=== PATIENT | male | born 1990 | race African-American/Black ===

== ENCOUNTER 2018-01-31 14:18 | Emergency (ER) | payer OTHER ==
[2018-01-31 15:06] LABS: BASOPHILS % (AUTO) 0.4 %; EOSINOPHILS # (AUTO) 0.3 10^3/uL (0.0-0.7); EOSINOPHILS % (AUTO) 2.5 %; HGB - HEMOGLOBIN 14.9 g/dL (14.0-18.0); LYMPHOCYTES # (AUTO) 0.9 10^3/uL (1.5-3.5); LYMPHOCYTES % (AUTO) 8.6 %; MEAN CORPUSCULAR HEMOGLOBIN 28.2 pg (27.0-31.0); MEAN CORPUSCULAR VOLUME 85.2 fL (80.0-94.0); MEAN PLATELET VOLUME 8.5 fL (7.4-11.4); MONOCYTES % (AUTO) 9.8 %; NEUTROPHILS # (AUTO) 7.9 10^3/uL (1.5-6.6); NEUTROPHILS % (AUTO) 78.7 %; PLT - PLATELET COUNT 224 10^3/uL (130-450); RED BLOOD COUNT 5.31 10^6/uL (4.70-6.10); RED CELL DISTRIBUTION WIDTH 13.1 % (12.0-15.0); WHITE BLOOD COUNT 10.1 x10^3/uL (4.8-10.8)
[2018-01-31 15:19] LABS: ALBUMIN/GLOBULIN RATIO 1.4 (1.0-2.2); BILIRUBIN,TOTAL 1.4 mg/dL (0.2-1.0); CALCIUM 9.9 mg/dL (8.5-10.3); CREATININE 1.3 mg/dL (0.6-1.2); TOTAL PROTEIN 8.7 g/dL (6.7-8.2)
[2018-01-31] MEDS ORDERED: SODIUM CHLORIDE 0.9% 1,000 ML IV ONE (15:22)
--- NOTE | 2018-01-31 15:22 | ED Physician Documentation ---
PD HPI ABD PAIN - Stated complaint Stated Complaint: ABD PX - Chief complaint Chief Complaint: Abd Pain - History obtained from History obtained from: Patient - History of Present Illness Timing - onset: Yesterday Timing - duration: Days (1) Timing - details: Abrupt onset, Still present Quality: Sharp, Pain Location: RLQ Improved by: Other (nothing) Worsened by: Other (urination) Associated symptoms: No: Fever, Nausea, Vomiting, Hematemesis, Diarrhea, Constipation Similar symptoms before: Has not had sx before Recently seen: Not recently seen - Additional information Additional information: Previously well 28-year-old male has developed some pain in his right lower abdomen. The pain is severe and not modifiable. He has been able to eat and he denies any fever. The pain started yesterday and has persisted. He does have some sensation of some increase in the pain when he tries to urinate. Review of Systems Constitutional: reports: Fatigue. denies: Fever, Chills Eyes: denies: Decreased vision Ears: denies: Ear pain Nose: denies: Congestion Throat: denies: Sore throat Cardiac: denies: Chest pain / pressure, Palpitations Respiratory: denies: Dyspnea, Cough GI: reports: Abdominal Pain. denies: Nausea, Vomiting, Constipation, Diarrhea : denies: Dysuria, Frequency Skin: denies: Rash Musculoskeletal: denies: Neck pain, Back pain, Extremity pain Neurologic: denies: Generalized weakness, Focal weakness PD PAST MEDICAL HISTORY - Present Medications Home Medications: Ambulatory Orders Medication Instructions Recorded Confirmed Amox/Clav 875/125 [Augmentin] 1 each PO Q12H #14 tablet 01/31/18 - Allergies Allergies/Adverse Reactions: Allergies Allergy/AdvReac Type Severity Reaction Status Date / Time codeine AdvReac Itching Verified 01/31/18 16:24 PD ED PE NORMAL - Vitals Vital signs reviewed: Yes (hypertensive) - General General: Alert and oriented X 3, No acute distress, Well developed/nourished - HEENT HEENT: Atraumatic, PERRL, EOMI - Neck Neck: Supple, no meningeal sign - Cardiac Cardiac: RRR, No murmur - Respiratory Respiratory: No respiratory distress, Clear bilaterally - Abdomen Abdomen: Soft, Other (There is mild right lower quadrant tenderness to palpation without garding or rebound. There is mild referred tenderness with deep palpation of the left abdomen. ) - Back Back: No CVA TTP, No spinal TTP - Derm Derm: Normal color, Warm and dry, No rash - Extremities Extremities: No deformity, No edema - Neuro Neuro: Alert and oriented X 3, mail censor 2-12 intact, No motor deficit, No sensory deficit, Normal speech Eye Opening: Spontaneous Motor: Obeys Commands Verbal: Oriented GCS Score: 15 - Psych Psych: Normal mood, Other (affect is flat) Results - Vitals Vitals: Vital Signs - 24 hr 01/31/18 01/31/18 14:29 16:18 Temperature 37.3 C 37.3 C Heart Rate 74 66 Respiratory 16 20 Rate Blood Pressure 135/80 H 115/78 O2 Saturation 100 97 Oxygen O2 Source Room air - Labs Labs: Laboratory Tests 01/31/18 01/31/18 15:00 15:00 WBC 10.1 RBC 5.31 Hgb 14.9 Hct 45.2 MCV 85.2 MCH 28.2 MCHC 33.0 RDW 13.1 Plt Count 224 MPV 8.5 Neut # (Auto) 7.9 H Lymph # (Auto) 0.9 L [place] # (Auto) 1.0 Eos # (Auto) 0.3 Baso # (Auto) 0.0 Absolute Nucleated RBC 0.00 Nucleated RBC % 0.0 Sodium 134 L Potassium 3.9 Chloride 94 L Carbon Dioxide 29 Anion Gap 11.0 BUN 14 Creatinine 1.3 H Estimated GFR (MDRD) 79 L Glucose 102 H Calcium 9.9 Total Bilirubin 1.4 H AST 22 ALT 16 Alkaline Phosphatase 64 Total Protein 8.7 H Albumin 5.0 Globulin 3.7 Albumin/Globulin Ratio 1.4 Lipase 24 - Rads (name of study) CT abdomen and pelvis without Radiology: Prelim report reviewed (Impression: 1. No hydronephrosis or ureteral lithiasis. Inflammatory change at the cecum. Appendix is not clearly identified. There are no definite diverticula. The findings are most suggestive of infectious colitis of the cecum (typhlitis). Correlate with CBC with differential.), EMP read indepedently, See rad report Procedures - Bedside sono Bedside sono by EMP: With use of bedside ultrasound the right kidney is imaged it is sonographically nontender there is minimal evidence of hydronephrosis. PD MEDICAL DECISION MAKING - ED course Complexity details: reviewed results, re-evaluated patient, considered differential, d/w patient, d/w heritage consultant (Dr. Lawrence Pop reveiwed case and CT and recommends conservative therapy with antibiotic ) ED course: 28 y/o male with right lower quadrant pain persistent for the past 2 days has inflammation of the cecum on CT scanning of the abdomen and pelvis. He is not in severe pain, he is eating and does not have vomiting or diarrhea. He does not have kidney stone and the case is discussed with the online journalist surgeon Dr. Lawrence Pop and he recommends antibiotic treatment as an outpatient and follow up in the surgical clinic if he does not have rapid improvement. - Sepsis Event Vital Signs: Vital Signs - 24 hr 01/31/18 01/31/18 14:29 16:18 Temperature 37.3 C 37.3 C Heart Rate 74 66 Respiratory 16 20 Rate Blood Pressure 135/80 H 115/78 O2 Saturation 100 97 Oxygen O2 Source Room air Departure - Departure Disposition: 01 Home, Self Care Clinical Impression: Diverticulitis of cecum Condition: Stable Instructions: ED Abdominal Pain Appendx Poss, ED Diverticulitis Follow-Up: [facility] [Provider Group] Lawrence Pop MD [Provider Admit Priv/Credential] - Prescriptions: Amox/Clav 875/125 [Augmentin] 1 each PO Q12H #14 tablet
--- NOTE | 2018-01-31 16:16 | CT Report ---
Procedure Date: 01/31/2018 Accession Number: [id number] / [id number] Procedure: CT - Abdomen/Pelvis W/O CPT Code: FULL RESULT: EXAM: CT ABDOMEN AND PELVIS (CT KUB) EXAM DATE: 01/31/2018 03:50 PM. CLINICAL HISTORY: RLQ pain non-tender mild hydro on bedside. COMPARISONS: None. TECHNIQUE: Routine axial helical CT imaging was performed through the abdomen and pelvis without IV contrast. Reconstructions: Coronal and sagittal. In accordance with CT protocol optimization, one or more of the following dose reduction techniques were utilized for this exam: automated exposure control, adjustment of mA and/or KV based on patient size, or use of iterative reconstructive technique. FINDINGS: Lung Bases: Unremarkable. Right Kidney/Ureter: No stones, hydronephrosis, or hydroureter. No perinephric fat stranding. Left Kidney/Ureter: No stones, hydronephrosis, or hydroureter. No perinephric fat stranding. Other Solid Organs: Noncontrast images of the solid organs are grossly unremarkable. Gallbladder/Bile Ducts: Unremarkable. Peritoneal Cavity: Unopacified stomach and small bowel are nondistended and unremarkable. Terminal ilium is unremarkable. There is mild to moderate wall thickening at the cecum associated with moderate pericecal fat stranding and shotty lymphadenopathy. The appendix is not clearly identified. No enlarged appendix is visualized. There is air in the ascending colon anteriorly between haustral folds without definitive diverticula. There is minimal formed stool in the colon. No other areas of pericolonic fat stranding are identified. Pelvic Organs: Bladder, prostate gland, and seminal vesicles are unremarkable. Vasculature: Unremarkable. Other: Tiny fat-containing left inguinal hernia. Prominent Schmorl's node formation superiorly at L4. IMPRESSION: 1. No hydronephrosis or urolithiasis. 2. Inflammatory change at the cecum. The appendix is not clearly identified. There are no definitive diverticula. The findings are most suggestive of infectious colitis of the cecum (typhlitis). Correlate with CBC with differential. [facility]
[2018-01-31 17:30] VITALS: BP 114/60
== END 2018-01-31 17:30 | disposition home or self-care (01) ==
LOC: ED 14:18
DX: K57.32 Diverticulitis of large intestine without perforation or abscess without bleeding (principal)
CPT/HCPCS: 36415; 74176; 80053; 83690; 85025; 96360; 99283; 99284